=== PATIENT | male | born 1935 | race Caucasian/White ===

== ENCOUNTER → 2023-12-17 06:54 | Outpatient (REF) | payer MEDICARE, BC, SELFPAY ==
[2023-12-17 10:20] LABS: % Basophils 0.6 % (0-2); % Eosinophils 1.4 % (0-6); % Immature Granulocytes 0.2 % (0-0.5); % Lymphocytes 36.3 % (20.5-51.1); % Monocytes 8.7 % (1.7-9.3); % Neutrophils 52.8 % (42.2-75.2); Absolute Eosinophils 0.1 10^3/uL (0-0.7); Absolute Lymphocytes 2.4 10^3/uL (1.2-3.4); Absolute Monocytes 0.6 10^3/uL (0.1-0.6); Absolute Neutrophils 3.5 10^3/uL (1.4-6.5); Hematocrit 44.4 % (39.0-52.0); Hemoglobin 14.8 g/dL (13.0-18.0); Mean Corp Hgb Conc. 33.3 g/dL (33.0-37.0); Mean Corpuscular Hgb 32.3 pg (27.0-31.0); Mean Corpuscular Volume 96.9 fL (80.0-94.0); Mean Platelet Volume 10.4 fL (7.4-10.4); Nucleated Red Blood Cells % 0 % (-); Platelet Count 162 10^3/uL (130-400); Red Blood Cell Count 4.58 10^6/uL (4.70-6.10); Red Cell Dist. Width 12.4 % (11.5-14.5); White Blood Cell Count 6.6 10^3/uL (4.8-10.8)
[2023-12-17 11:01] LABS: ALT (SGPT) 17 U/L (0-50); AST (SGOT) 26 U/L (17-59); Alkaline Phosphatase 67 U/L (38-126); Blood Urea Nitrogen 19 mg/dl (9-20); Calcium 9.6 mg/dl (8.4-10.2); Carbon Dioxide 30 mmol/L (22-30); Chloride 100 mmol/L (98-107); Glucose 102 mg/dl (70-99); HDL Cholesterol 59 mg/dl; LDL Cholesterol, Calculated 72 mg/dl; Potassium 4.5 mmol/L (3.5-5.1); Sodium 137 mmol/L (135-145); Total Bilirubin 1.3 mg/dl (0.2-1.3); Total Cholesterol 153 mg/dl (50-199); Total Protein 6.9 g/dl (6.3-8.2); Triglyceride 111 mg/dl (10-149); Very Low Density Lipoprotein 22 mg/dl (0-30); eGFR > 60.00
== END ==
LOC: HWLAB 06:54
PROVIDERS: ATTENDING PHYSICIAN Family Medicine
DX: R73.01 Impaired fasting glucose (principal); E78.2 Mixed hyperlipidemia; D75.89 Other specified diseases of blood and blood-forming organs
CPT/HCPCS: 36415; 80053; 80061; 83036; 85025

== ENCOUNTER → 2023-12-22 10:13 | Outpatient (REF) | payer MEDICARE, BC, SELFPAY ==
[2023-12-22 18:51] LABS: Urine Albumin Negative (Neg - Trace); Urine Bilirubin Negative (Negative); Urine Character Clear (Clear); Urine Color Yellow; Urine Glucose Negative (Negative); Urine Ketone Negative (Negative); Urine Leukocyte Negative (Negative); Urine Nitrite Negative (Negative); Urine Occult Blood Negative (Negative); Urine Specific Gravity 1.015 (<1.030); Urine Urobilinogen Negative (Neg - 1+)
== END ==
LOC: CLAB 10:13
PROVIDERS: ATTENDING PHYSICIAN Family Medicine
DX: R10.31 Right lower quadrant pain (principal)
CPT/HCPCS: 81003

== ENCOUNTER → 2024-06-14 09:16 | Outpatient (REF) | payer MEDICARE, BC, SELFPAY ==
[2024-06-14 12:26] LABS: ALT (SGPT) 18 U/L (0-50); AST (SGOT) 25 U/L (17-59); Alkaline Phosphatase 73 U/L (38-126); Blood Urea Nitrogen 18 mg/dl (9-20); Calcium 9.2 mg/dl (8.4-10.2); Carbon Dioxide 28 mmol/L (22-30); Chloride 101 mmol/L (98-107); Glucose 102 mg/dl (70-99); HDL Cholesterol 53 mg/dl; LDL Cholesterol, Calculated 93 mg/dl; Potassium 4.5 mmol/L (3.5-5.1); Sodium 139 mmol/L (135-145); Total Bilirubin 1.2 mg/dl (0.2-1.3); Total Cholesterol 168 mg/dl (50-199); Total Protein 6.7 g/dl (6.3-8.2); Triglyceride 111 mg/dl (10-149); Very Low Density Lipoprotein 22 mg/dl (0-30); eGFR > 60.00
== END ==
LOC: HWLAB 09:16
PROVIDERS: ATTENDING PHYSICIAN Family Medicine
DX: R73.01 Impaired fasting glucose (principal); E78.2 Mixed hyperlipidemia
CPT/HCPCS: 36415; 80053; 80061

== ENCOUNTER → 2024-12-20 08:19 | Outpatient (REF) | payer MEDICARE, BC, SELFPAY ==
[2024-12-20 09:56] LABS: ALT (SGPT) 17 U/L (0-50); AST (SGOT) 24 U/L (17-59); Alkaline Phosphatase 77 U/L (38-126); Blood Urea Nitrogen 19 mg/dl (9-20); Calcium 9.5 mg/dl (8.4-10.2); Carbon Dioxide 29 mmol/L (22-30); Chloride 105 mmol/L (98-107); Glucose 106 mg/dl (70-99); HDL Cholesterol 53 mg/dl; LDL Cholesterol, Calculated 84 mg/dl; Potassium 4.6 mmol/L (3.5-5.1); Sodium 141 mmol/L (135-145); Total Bilirubin 1.3 mg/dl (0.2-1.3); Total Cholesterol 158 mg/dl (50-199); Total Protein 6.6 g/dl (6.3-8.2); Triglyceride 108 mg/dl (10-149); Very Low Density Lipoprotein 21 mg/dl (0-30); eGFR > 60.00
== END ==
LOC: HWLAB 08:19
PROVIDERS: ATTENDING PHYSICIAN Family Medicine
DX: R73.01 Impaired fasting glucose (principal); E78.2 Mixed hyperlipidemia
CPT/HCPCS: 36415; 80053; 80061

== ENCOUNTER 2025-02-19 13:06 | Emergency (ER) | payer MEDICARE, BC, SELFPAY ==
[2025-02-19 13:09] VITALS: BP 165/64
[2025-02-19 13:24] VITALS: BMI 27.6
[2025-02-19 13:25] VITALS: BP 157/60
[2025-02-19 13:38] LABS: % Basophils 0.3 % (0-2); % Eosinophils 0.1 % (0-6); % Immature Granulocytes 0.5 % (0-0.5); % Lymphocytes 10.3 % (20.5-51.1); % Monocytes 4.6 % (1.7-9.3); % Neutrophils 84.2 % (42.2-75.2); Absolute Immature Granulocytes 0.1 10^3/uL (0-0.05); Absolute Lymphocytes 1.5 10^3/uL (1.2-3.4); Absolute Monocytes 0.7 10^3/uL (0.1-0.6); Absolute Neutrophils 12.3 10^3/uL (1.4-6.5); Hematocrit 43.3 % (39.0-52.0); Mean Corp Hgb Conc. 34.6 g/dL (33.0-37.0); Mean Corpuscular Hgb 32.6 pg (27.0-31.0); Mean Corpuscular Volume 94.1 fL (80.0-94.0); Mean Platelet Volume 9.8 fL (7.4-10.4); Nucleated Red Blood Cells % 0 % (-); Platelet Count 163 10^3/uL (130-400); Red Cell Dist. Width 12.5 % (11.5-14.5); White Blood Cell Count 14.7 10^3/uL (4.8-10.8)
[2025-02-19 13:44] LABS: INR 1.11; PT 14.6 Sec (11.4-14.6)
[2025-02-19 13:56] LABS: Blood Urea Nitrogen 21 mg/dl (9-20); Calcium 8.8 mg/dl (8.4-10.2); Carbon Dioxide 24 mmol/L (22-30); Chloride 107 mmol/L (98-107); Estimated Creatinine Clearance 69 ml/min; Glucose 114 mg/dl (70-99); Sodium 138 mmol/L (135-145); eGFR > 60.00
[2025-02-19 14:00] VITALS: BP 128/53
[2025-02-19 14:00] LABS: Troponin I < 0.012 ng/ml
[2025-02-19 15:10] VITALS: BP 139/58
[2025-02-19] MEDS: NSS 500 IV (15:12)
--- NOTE | 2025-02-19 15:42 | ED.GENMED ---
History of Present Illness
General
Chief Complaint: Fainting/Passed Out
Source: patient and spouse
Time Seen by Provider: 02/19/25 14:27
History of Present Illness
History of Present Illness:
Note:
CHIEF COMPLAINT(S)
Altered sensation and nausea following a walk.
HISTORY OF PRESENT ILLNESS
The patient is an 89-year-old male with a past medical history of atrial fibrillation managed with ablation, hypercholesterolemia, and hypertension, presenting with symptoms of lightheadedness and nausea. The patient reports that him and his
went for a 40-minute walk at 9:00 AM in hot conditions and felt well. Patient states he was on the phone with someone and started feeling get have a bowel movement. He went to the bathroom and while on the toilet started feel lightheaded. .The
patient then got up off the toilet and walked into another room and then grew extremely sweaty and subsequently experienced dizziness, lightheadedness, nausea, and passed out. Spouse states that patient was unconscious. The patient then vomited.
The patient experienced transient closure of the eyes, perceived as syncope by the spouse, who noted that the patient was soaked in sweat. Symptoms resolved after vomiting, and the patient has been feeling well since.
According to the patient, there was no associated chest pain, shortness of breath, or palpitations during the episode. The patient usually drinks a cup of water before taking walks but did not do so this morning. He mentioned prior advice from his
physician regarding possible dehydration and was referred to the emergency department for further assessment. Past medical interventions include an ablation for atrial fibrillation, with current use of anticoagulation therapy as recommended by his
physician. Patient went to urgent care initially who sent him here for further evaluation
ALLERGIES
No known drug allergies.
PAST MEDICAL HISTORY
- Atrial fibrillation, managed with ablation.
- Hypertension.
- Hypercholesterolemia.
- History of kidney stones.
REVIEW OF SYSTEMS
- Cardiovascular: No chest pain, palpitations.
- Gastrointestinal: Nausea and vomiting post-episode.
- Neurological: Lightheadedness, transient presumed syncope.
- General: Profuse sweating.
PHYSICAL EXAM
- General: Well-appearing, awake, alert, and oriented.
- Respiratory: No respiratory distress, lungs clear to auscultation bilaterally.
- Cardiovascular: Heart at regular rate and rhythm, no murmur.
- Gastrointestinal: Abdomen not distended.
- Extremities: No edema.
- Neurological: Cranial nerves intact, motor exam non-focal.
- Mucous membranes: Moist.
PLAN
- Administer intravenous fluids to address potential dehydration.
- Monitor heart rate, particularly for arrhythmias, and check vital signs regularly.
- Conduct laboratory tests to evaluate electrolytes and ensure there are no abnormalities.
- Observe the patient and reassess based on clinical improvement and lab results.
DIFFERENTIAL DIAGNOSIS
The Differential Diagnosis includes, in no particular order and is not limited to:
1. Vasovagal syncope
2. Orthostatic hypotension
3. Dehydration
4. Cardiac arrhythmia
5. Heat exhaustion
6. Gastroenteritis
7. Stroke or transient ischemic attack
8. Hypoglycemia
9. Vestibular dysfunction
10. Medication side effects
EKG
My independent EKG interpretation is:
- Rhythm: Normal sinus rhythm
- Heart rate: 66 bpm
- [place]: Normal axis
- Ischemia changes: None observed
- QTc interval: Normal
- Intervals: Normal
Disposition:
SUMMARY OF ENCOUNTER
The patient is an 89-year-old male who presented following a syncope episode that occurred after a morning walk in hot conditions. The episode was associated with going to the bathroom, feeling lightheaded, and is suspected to be a vasovagal event.
ASSESSMENT
The patient is now well-appearing with no further symptoms. He has a past history of vasovagal syncope.
PLAN
The patient is considered safe for discharge with outpatient follow-up and advice on staying hydrated during activities in hot weather. Discharge made considering patients improved condition and stable rhythm with no current concern of bradycardia
or pulmonary embolism.
MEDICATION RECONCILIATION
IV fluids were administered in the emergency department.
MEDICAL DECISION MAKING
1. Number & Complexity of Problems: Chronic conditions affecting care include history of syncope.
2. Data Reviewed:
- Category 1: Labs reviewed included a minor leukocytosis and chemistry showing normal troponin, sodium, and renal function with a BUN/creatinine ratio over 20:1 indicating possible slight dehydration.
3. Risk: Consideration of admission was made due to the patients age but outpatient management deemed appropriate based on clinical improvement and absence of high-risk features.
DIAGNOSIS
Vasovagal syncope, likely exacerbated by dehydration and heat exposure.
PATHOLOGIES TO CONSIDER
- Dehydration
- Vasovagal syncope
- Orthostatic hypotension (given the postural change)
- Potential underlying cardiac arrhythmias (though EKG normal)
Phy Exam
Physical Exam
Physical Exam:
.
Course
Orders/Labs/Results
Orders:
Orders
02/19/25 13:15
EKG [Electrocardiogram (*1)] Urgent
Reason for Study: Syncope
EKG- Treatment ONCE
02/19/25 13:20
IV Insert/Care/Rem.- Treatment PRN
02/19/25 13:28
Basic Metabolic Panel Urgent
Complete Blood Count/With Diff Urgent
Prothrombin Time Urgent
Troponin I Urgent
02/19/25 14:47
0.9% Sodium Chloride 500 ml [Nss] 500 ml IV BOLUS
02/19/25 15:55
Potassium Urgent
Abnormal Lab Results
02/19/25 02/19/25
13:28 15:55
WBC 14.7 H 10^3/uL
(4.8-10.8)
RBC 4.60 L 10^6/uL
(4.70-6.10)
MCV 94.1 H fL
(80.0-94.0)
MCH 32.6 H pg
(27.0-31.0)
Abs Immat Gran (auto) 0.1 H 10^3/uL
(0-0.05)
Absolute Neuts (auto) 12.3 H 10^3/uL
(1.4-6.5)
Absolute Monos (auto) 0.7 H 10^3/uL
(0.1-0.6)
Neutrophils % 84.2 H %
(42.2-75.2)
Lymphocytes % 10.3 L %
(20.5-51.1)
Potassium 5.4 H mmol/L
(3.5-5.1)
BUN 21 H mg/dl
(9-20)
Glucose 114 H mg/dl
(70-99)
02/19/25 13:28
02/19/25 15:55
Vital Signs
Initial and Last Documented VS:
Initial Vital Signs
Temp Pulse Resp BP Pulse Ox
97.7 F 86 16 165/64 99
02/19/25 13:09 02/19/25 13:09 02/19/25 13:09 02/19/25 13:09 02/19/25 13:09
Last Documented Vital Signs
Temp Pulse Resp BP Pulse Ox
97.7 F 53 19 145/61 99
02/19/25 13:09 02/19/25 16:00 02/19/25 16:00 02/19/25 16:00 02/19/25 16:00
*Pulse Oximetry
SaO2: 97
Oxygen Mode of Delivery: Room air
Patient hypoxic: no
*Critical Care Note
Total Time (30-74mins, 75-104mins- exclusive of procedures): Not Applicable
ED Attending Note
-
Portions of this chart may have been created with voice recognition software.� Occasional wrong word or��sound alike� substitutions may have occurred due to the inherent limitations of voice recognition software.
Discharge Plan
Departure
Patient Disposition: Home (Routine Discharge)
Date of Disposition: 02/19/25
Time of Disposition: 15:42
Patient with high blood pressure during this ER visit?: No
Discharge Problem:
Syncope, vasovagal
Instructions: Syncope (Fainting) (DC)
Prescriptions:
No Action
metoprolol succinate [Toprol XL] 50 MG tablet extended release 24 hr
50 mg PO QPM
simvastatin 20 MG tablet
20 mg PO QPM
finasteride 5 MG tablet
5 mg PO QPM
alfuzosin [Uroxatral] 10 MG tablet extended release 24 hr
10 mg PO QPM
turmeric root extract 500 MG capsule
400 mg PO DAILY
astaxanthin 4 MG capsule
4 mg PO DAILY
coQ10 (ubiquinol) 100 MG capsule
100 mg PO DAILY
apixaban [Eliquis] 5 MG tablet
5 mg PO BID
L.acidoph,paracasei,B.animalis 1 EACH capsule
1 ea PO DAILY
Referrals:
Beni Rossi MD [Family Provider, Family Practice]
Activity Restrictions/Additional Instructions:
Please drink plenty of fluids. Please see your doctor in the next 2 to 3 days for follow-up and reevaluation. Return immediately for recurrent passing out episode, chest pain, shortness of breath, palpitations, weakness of any kind or any other
concerns.
Interventions
Interventions:
*Risk Screen - Suicide Last Done: 02/19/25 13:09
*General Assessment Last Done: 02/19/25 13:24
*Neglect/Abuse Screening Last Done: 02/19/25 13:09
*ED- Fall Risk Assessment Last Done: 02/19/25 13:24
*ED COVID-19 Vaccine History Last Done: 02/19/25 13:24
*Nursing Disposition Last Done: 02/19/25 16:19
ED- Cardiac Assessment Last Done: 02/19/25 13:24
ED- Neurological Assessment Last Done: 02/19/25 13:24
Discharge Date and Time
Discharge Date/Time: 02/19/25 16:20
Print Language: SERBIAN
[2025-02-19 16:00] VITALS: BP 145/61
[2025-02-19 16:19] LABS: Potassium 5.4 mmol/L (3.5-5.1)
== END 2025-02-19 16:20 | disposition home or self-care (01) ==
LOC: EMR 13:06
PROVIDERS: Emergency Medicine; EMERGENCY PHYSICIAN Emergency Medicine; FAMILY PHYSICIAN Family Medicine
DX: R55 Syncope and collapse (principal); E78.00 Pure hypercholesterolemia, unspecified; I10 Essential (primary) hypertension; I48.91 Unspecified atrial fibrillation; Z79.01 Long term (current) use of anticoagulants
CPT/HCPCS: 99284; 80048; 84132; 84484; 85025; 85610; 93005

== ENCOUNTER → 2025-03-03 07:22 | Outpatient (REF) | payer MEDICARE, BC, SELFPAY ==
[2025-03-03 09:57] LABS: Hematocrit 41.7 % (39.0-52.0); Hemoglobin 14.2 g/dL (13.0-18.0); Mean Corp Hgb Conc. 34.1 g/dL (33.0-37.0); Mean Corpuscular Volume 96.5 fL (80.0-94.0); Nucleated Red Blood Cells % 0 % (-); Platelet Count 160 10^3/uL (130-400); Red Cell Dist. Width 12.5 % (11.5-14.5)
[2025-03-03 10:44] LABS: Blood Urea Nitrogen 15 mg/dl (9-20); Calcium 9.3 mg/dl (8.4-10.2); Carbon Dioxide 27 mmol/L (22-30); Chloride 105 mmol/L (98-107); Glucose 103 mg/dl (70-99); Potassium 5.0 mmol/L (3.5-5.1); Sodium 138 mmol/L (135-145); eGFR > 60.00
== END ==
LOC: HWLAB 07:22
PROVIDERS: ATTENDING PHYSICIAN Family Medicine
DX: E87.5 Hyperkalemia (principal); D72.829 Elevated white blood cell count, unspecified
CPT/HCPCS: 36415; 80048; 85025